=== PATIENT | male | born 1930 | race Caucasian/White ===

== ENCOUNTER 2018-01-31 07:37 | Emergency (ER) | payer OTHER ==
[~2018-01-31] VITALS: Ht 180.3 cm; Wt 90.1 kg
[~2018-01-31 07:37] MED LIST: ALT10 PO; ANTIOXIDANT; ASPCH81 PO; CYAN100T PO; EZET10TA44 PO; METO50TA8 PO; MRLP17 PO; MULT-506 PO; OMEP40CA PO; OXYC-57 PO; RNXER500 PO
[2018-01-31 07:39] VITALS: TEMP 37.5; Ht 180.3 cm; Wt 90.1 kg
[2018-01-31 07:48] VITALS: O2SAT 96
[2018-01-31] MEDS ORDERED: METHYLPREDNISOLONE 125 MG VIAL IV STA (07:52)
[2018-01-31] MEDS ORDERED: ALBUT/IPRATROP 3MG/0.5MG NEB 3 ML VIAL INH STA (07:52)
--- NOTE | 2018-01-31 08:00 | EMERGENCY ROOM VISIT NOTE ---
History Report prepared by Gilberto: Quirino Randolph Under the Supervision of: Dr. Junie Whalen M.D. First contact with patient: 07:42 Chief Complaint: SHORTNESS OF BREATH Stated Complaint: COUGH ALL NIGHT, PAIN IN CHEST History of Present Illness The patient is an 87 year old male who presents to the Emergency Room with complaints of a persistent cough that began last night. The patient states that he flew home from [place] two days ago, and there was a man coughing on the plane. The patient also notes some left sided chest pain, and feels chilled. Patient admits to some sputum production. He denies being short of breath with walking. Patient denies history of fever, vomiting, diarrhea or lower extremity swelling. He has a history of triple bypass surgery. He denies a history of blood clots. Source of History: patient, spouse/significant other Onset: Last night Position: chest Quality: other (cough) Timing: other (persistent) Associated Symptoms: + chills, + chest pain Review of Systems See HPI for pertinent positives & negatives. A total of 10 systems reviewed and were otherwise negative. Past Medical & Surgical Hx of Cardiac Bypass Surgery. Family History Omitted secondary to age. Social History Smoking Status: Former Smoker Marital Status: Housing Status: lives with significant other Occupation Status: retired Current/Historical Medications Scheduled Ascorbic Acid (Vitamin C), 500 MG PO DAILY Aspirin (Ecotrin Low Strength), 81 MG PO DAILY Atorvastatin (Lipitor), 40 MG PO DAILY Azithromycin (Zithromax Z-Apolinar), 1 PKT PO UD Cyanocobalamin (Vitamin B-12), 500 MCG PO DAILY Metoprolol Succ (Toprol Xl) (Toprol-Xl), 25 MG PO DAILY Omeprazole (Prilosec), 20 MG PO DAILY Ramipril (Ramipril), 2.5 MG PO DAILY Ranolazine (Ranexa), 500 MG PO DAILY Scheduled PRN Albuterol Hfa (Ventolin Hfa), 2 PUFFS INH Q6H PRN for Shortness of Breath Hydrocodone W/ Homatropine (Hycodan 5/1.5MG 5 Ml), 5 ML PO HS PRN for Cough Allergies Coded Allergies: No Known Allergies (Verified , 06/14/06) Physical Exam Vital Signs Date Time Temp Pulse Resp B/P (MAP) Pulse Ox O2 Delivery O2 Flow Rate FiO2 4/17/18 11:35 99 18 117/64 95 Room Air 01/31/18 10:44 103 18 124/69 96 Room Air 01/31/18 09:11 109 20 173/81 96 Room Air 01/31/18 08:42 107 22 159/73 96 Room Air 01/31/18 07:56 99 01/31/18 07:48 96 Room Air 01/31/18 07:39 37.5 101 18 132/88 95 Room Air Physical Exam Vital signs reviewed. General: Well-appearing elderly male, in no significant distress. HEENT: No scleral icterus, PERRLA, neck supple. Atraumatic. Chest: Non-tender to the left anterior chest wall, no pain with deep inspiration. Cardiovascular: Slightly tachycardic rate and regular rhythm, no extra sounds. Pulmonary: Clear to auscultation bilaterally, normal work of breathing. Dry cough. Abdomen: Soft, nontender, nondistended, positive bowel sounds. Musculoskeletal: Atraumatic, no peripheral edema. Neurologic: Patient awake alert and oriented x 3, full strength in all 4 extremities. Cranial nerves 2 through 12 grossly intact. Skin: Warm, dry, no rash Medical Decision & Procedures ER Provider Diagnostic Interpretation: Radiology results as stated below per my review and radiologist interpretation: (CHEST FOR PE) ANGIO WITH CLINICAL HISTORY: 87 years-old Male presenting with ^chest pain, elevated ddimer. TECHNIQUE: Multidetector CT angiography of the chest was performed after administration of intravenous contrast. 3-D volumetric and/or maximum intensity projection (MIP) images were subsequently reconstructed for review. IV contrast: 94 mL of Optiray 320. A dose lowering technique was used consistent with the principles of ALARA (as low as reasonably achievable). COMPARISON: Chest x-ray performed earlier the same day. CT DOSE (mGy.cm): The estimated cumulative dose is 539.09 mGycm. FINDINGS: Construction Producer topogram: Median sternotomy wires and mediastinal surgical clips noted. Pulmonary vasculature: The study is suboptimal for the assessment of the pulmonary vascular tree secondary to positioning of the arms at the sides, timing of the contrast bolus, and respiratory motion artifact. Allowing for limited image quality, no central filling defect to suggest pulmonary embolus. Main pulmonary artery is not enlarged. No flattening of the interventricular septum. No intracardiac filling defect. No reflux of contrast into the hepatic veins. Remaining chest: On soft tissue windows, subcentimeter nodule in the right lobe of the thyroid. Bilateral gynecomastia. Few subcentimeter mediastinal lymph nodes, mobile most prominently in the subcarinal region measuring up to 9 mm in the short axis, possibly reactive. Atherosclerosis of the aorta. Normal heart size. Coronary artery calcification. Post surgical changes of coronary artery bypass grafting. Graft vessels appear patent. No pericardial or pleural effusion. Cholelithiasis. On lung windows, motion artifact grades evaluation of lung parenchyma. Allowing for this, dependent consolidation likely atelectasis. Mild bronchial wall thickening suggested. Central airways patent. On bone windows, degenerative changes of the spine. Exaggerated thoracic kyphosis. No focal compression deformity. Well-healed sternotomy. IMPRESSION: 1. Allowing for suboptimal image quality, no evidence of pulmonary embolus. 2. Bibasilar atelectasis. 3. Nonspecific mild bronchial wall thickening. This could suggest bronchitis, mild congestive change, or smoking related lung injury. 4. Reactive mediastinal lymph nodes. 5. Postsurgical changes of CABG. Electronically signed by: Mahendra Hennessy M.D. 01/31/2018 9:15 AM Dictated Date/Time: 01/31/2018 9:08 AM CHEST ONE VIEW PORTABLE CLINICAL HISTORY: 87 years-old Male presenting with cough. TECHNIQUE: Portable upright AP view of the chest was obtained. COMPARISON: 03/02/2010. FINDINGS: Median sternotomy wires and mediastinal surgical clips noted. Atherosclerosis of the aortic arch. Cardiac silhouette normal in size. Elevation of the left hemidiaphragm with minimal left basilar opacity. Otherwise no focal opacity. No large effusion or pneumothorax. Degenerative changes of the thoracic spine. IMPRESSION: 1. Elevation of the left hemidiaphragm with minimal left basilar atelectasis. No convincing evidence of acute cardiopulmonary disease. Electronically signed by: Mahendra Hennessy M.D. 01/31/2018 8:19 AM Dictated Date/Time: 01/31/2018 8:18 AM Laboratory Results 01/31/18 08:06 Red Blood Count 4.72, Mean Corpuscular Volume 89.8, Mean Corpuscular Hemoglobin 31.8, Mean Corpuscular Hemoglobin Concent 35.4, Mean Platelet Volume 9.6, Neutrophils (%) (Auto) 90.7, Lymphocytes (%) (Auto) 3.4, Monocytes (%) (Auto) 4.1, Eosinophils (%) (Auto) 1.2, Basophils (%) (Auto) 0.2, Neutrophils # (Auto) 9.53, Lymphocytes # (Auto) 0.36, Monocytes # (Auto) 0.43, Eosinophils # (Auto) 0.13, Basophils # (Auto) 0.02 01/31/18 08:06 Test 01/31/18 08:06 01/31/18 08:12 01/31/18 10:17 White Blood Count 10.51 K/uL (4.8-10.8) Red Blood Count 4.72 M/uL (4.7-6.1) Hemoglobin 15.0 g/dL (14.0-18.0) Hematocrit 42.4 % (42-52) Mean Corpuscular Volume 89.8 fL (80-100) Mean Corpuscular Hemoglobin 31.8 pg (25-34) Mean Corpuscular Hemoglobin Concent 35.4 g/dl (32-36) Platelet Count 98 K/uL (130-400) Mean Platelet Volume 9.6 fL (7.4-10.4) Neutrophils (%) (Auto) 90.7 % Lymphocytes (%) (Auto) 3.4 % Monocytes (%) (Auto) 4.1 % Eosinophils (%) (Auto) 1.2 % Basophils (%) (Auto) 0.2 % Neutrophils # (Auto) 9.53 K/uL (1.4-6.5) Lymphocytes # (Auto) 0.36 K/uL (1.2-3.4) Monocytes # (Auto) 0.43 K/uL (0.11-0.59) Eosinophils # (Auto) 0.13 K/uL (0-0.5) Basophils # (Auto) 0.02 K/uL (0-0.2) RDW Standard Deviation 44.0 fL (36.4-46.3) RDW Coefficient of Variation 13.4 % (11.5-14.5) Immature Granulocyte % (Auto) 0.4 % Immature Granulocyte # (Auto) 0.04 K/uL (0.00-0.02) Platelet Estimate DECREASED Large Platelets 1+ Anion Gap 7.0 mmol/L (3-11) Est Creatinine Clear Calc Drug Dose 43.4 ml/min Estimated GFR () 57.3 Estimated GFR (Non- 49.4 BUN/Creatinine Ratio 13.9 (10-20) Calcium Level 8.8 mg/dl (8.5-10.1) Total Bilirubin 1.3 mg/dl (0.2-1) Direct Bilirubin 0.3 mg/dl (0-0.2) Aspartate Amino Transf (AST/SGOT) 18 U/L (15-37) Alanine Aminotransferase (ALT/SGPT) 30 U/L (12-78) Alkaline Phosphatase 78 U/L (45-117) Total Protein 7.2 gm/dl (6.4-8.2) Albumin 4.2 gm/dl (3.4-5.0) Bedside D-Dimer > 450 ng/mlFEU (0-450) Troponin I < 0.015 ng/ml (0-0.045) Laboratory results per my review. Medications Administered Medications (Trade) Dose Ordered Sig/Saleem Route Start Time Stop Time Status Last Admin Dose Admin Albuterol/ Ipratropium (Duoneb) 3 ml NOW STAT INH 01/31/18 07:52 01/31/18 07:55 DC 01/31/18 08:20 3 ML Methylprednisolone Sodium Succinate (Solu-Medrol IV) 125 mg NOW STAT IV 01/31/18 07:52 01/31/18 07:55 DC 01/31/18 08:20 125 MG Morphine Sulfate (MoRPHine SULFATE INJ) 2 mg NOW STAT IV 01/31/18 09:18 01/31/18 09:19 DC 01/31/18 09:38 2 MG Ondansetron HCl (Zofran Inj) 4 mg NOW STAT IV 01/31/18 09:18 01/31/18 09:20 DC 01/31/18 09:36 4 MG Acetaminophen (Tylenol Tab) 650 mg NOW STAT PO 01/31/18 09:29 01/31/18 09:31 DC 01/31/18 09:37 650 MG ECG Per My Interpretation Indication: chest pain Rate (beats per minute): 97 Rhythm: normal sinus Findings: other (No LIVAN/STD, possible inferior infarct) Change: REPEAT EKG SHOWS: Sinus tachycardia 110, non specific ST-changes. Poor baseline for interpretation. ED Course 0747: Past medical records reviewed. The patient was evaluated in room A12B. A complete history and physical examination was performed. 0752: Ordered Solu-Medrol 125 mg IV, Duoneb 3 mL INH. 09: Ordered Zofran 4 mg IV, Morphine Sulfate 2 mg IV. 928: Ordered Tylenol 650 mg PO. 1147: Upon reevaluation, the patient appeared to have improvement of his symptoms. I discussed findings with him. He verbalized agreement of the treatment plan. The patient was discharged home. Medical Decision Differential diagnosis: Etiologies such as infections, reactive airway disease, pneumonia, pneumothorax , COPD, CHF, cardiac ischemia, pulmonary embolism, musculoskeletal, gastrointestinal, as well as others were entertained. This patient was evaluated and appeared to be in no significant distress. Physical examination is fairly unrevealing. He is noted to be mildly febrile at 37.5. Patient is also slightly tachycardic however has not taken any of his medications including metoprolol. Patient was given a nebulizer treatment which likely contributed to the mild tachycardia. Chest x-ray was obtained and is clear. EKG reveals no evidence of acute ischemic changes. Patient was given IV Solu-Medrol for the bronchitis. He complained of pain and was given IV morphine, p.o. Tylenol and Zofran. Patient's cardiac enzymes are negative 2. D-dimer is positive. CTA of the chest reveals no evidence of PE. EKG reveals no evidence of acute ischemic changes. On reevaluation the patient is feeling much improved. I do suspect a large component of anxiety. Patient was placed on a azithromycin and an albuterol inhaler. He was given a short prescription for Hycodan syrup to be taken at night for cough/sleep. Patient was discharged to follow-up with his PCP this week and to return to the ER for worsening symptoms or any medical concerns. Medication Reconcilliation Current Medication List: was personally reviewed by me Blood Pressure Screening Patient's blood pressure: Elevated blood pressure Blood pressure disposition: Elevated BP felt to be situational Impression Primary Impression: Acute bronchitis Additional Impression: Pleuritic chest pain Scribe Attestation The scribe's documentation has been prepared under my direction and personally reviewed by me in its entirety. I confirm that the note above accurately reflects all work, treatment, procedures, and medical decision making performed by me. Departure Information Dispostion Home / Self-Care Prescriptions Azithromycin (ZITHROMAX Z-APOLINAR) 250 Mg Tab 1 PKT PO UD for 5 Days, #6 TAB Prov: Junie Whalen M.D. 01/31/18 Albuterol Hfa (VENTOLIN HFA) 200 Puffs/59486 Mcg Aers 2 PUFFS INH Q6H Y for Shortness of Breath, #1 INHALER Prov: Junie Whalen M.D. 01/31/18 Hydrocodone W/ Homatropine (HYCODAN 5/1.5MG 5 ML) 1 Syp Syp 5 ML PO HS Y for Cough for 10 Days, #100 ML Prov: Junie Whalen M.D. 01/31/18 Referrals Bogdan Miles III, M.D. (PCP) Forms HOME CARE DOCUMENTATION FORM, IMPORTANT VISIT INFORMATION Patient Instructions My [facility] Additional Instructions Diagnosis: Bronchitis Azithromycin 500 mg today, 250 mg daily for next 4 days. Hycodan 1 tsp or 5 mL at night for cough, do not drive after taking this medication. Albuterol 2 puffs every 4 hours as needed for cough Tylenol 650 mg every 6 hours as needed for pain. Continue your medications as prescribed. Return to the ED for worsening of symptoms or any medical concerns. Problem Qualifiers
--- NOTE | 2018-01-31 08:20 | DIAGNOSTIC IMAGING REPORT ---
CHEST ONE VIEW PORTABLE CLINICAL HISTORY: 87 years-old Male presenting with cough. TECHNIQUE: Portable upright AP view of the chest was obtained. COMPARISON: 03/02/2010. FINDINGS: Median sternotomy wires and mediastinal surgical clips noted. Atherosclerosis of the aortic arch. Cardiac silhouette normal in size. Elevation of the left hemidiaphragm with minimal left basilar opacity. Otherwise no focal opacity. No large effusion or pneumothorax. Degenerative changes of the thoracic spine. IMPRESSION: 1. Elevation of the left hemidiaphragm with minimal left basilar atelectasis. No convincing evidence of acute cardiopulmonary disease. Electronically signed by: Mahendra Hennessy M.D. 01/31/2018 8:19 AM Dictated Date/Time: 01/31/2018 8:18 AM
[2018-01-31 08:33] LABS: ALBUMIN 4.2 gm/dl (3.4-5.0); CALCIUM 8.8 mg/dl (8.5-10.1); CREATININE 1.3 mg/dl (0.60-1.40); POTASSIUM 4.2 mmol/L (3.5-5.1); TOTAL PROTEIN 7.2 gm/dl (6.4-8.2)
[2018-01-31 08:36] LABS: BASO % 0.2 %; BASO ABS # 0.02 K/uL (0-0.2); EOS % 1.2 %; EOS ABS # 0.13 K/uL (0-0.5); HEMATOCRIT 42.4 % (42-52); IG# 0.04 K/uL (0.00-0.02); LYMPH % 3.4 %; LYMPH ABS # 0.36 K/uL (1.2-3.4); MEAN CELL VOLUME 89.8 fL (80-100); MEAN CORPUSCULAR HEMOGLOBIN 31.8 pg (25-34); MEAN CORPUSCULAR HGB CONC 35.4 g/dl (32-36); MEAN PLATELET VOLUME 9.6 fL (7.4-10.4); MONO % 4.1 %; MONO ABS # 0.43 K/uL (0.11-0.59); NEUT % 90.7 %; NEUT ABS # 9.53 K/uL (1.4-6.5); PLATELET COUNT 98 K/uL (130-400); RED CELL DISTRIBUTION WIDTH CV 13.4 % (11.5-14.5); WHITE BLOOD COUNT 10.51 K/uL (4.8-10.8)
[2018-01-31] MEDS ORDERED: OPTIRAY 320 IV PRN (08:45)
[2018-01-31] MEDS ORDERED: RAMI2.5C PO (08:46)
[2018-01-31] MEDS ORDERED: METO25TA3 PO (08:46)
[2018-01-31] MEDS ORDERED: ATOR-24 PO (08:46)
[2018-01-31] MEDS ORDERED: ASCA500 PO (08:46)
[2018-01-31] MEDS ORDERED: PRLSR20 PO (08:46)
[2018-01-31] MEDS ORDERED: RANO500T PO (08:46)
[2018-01-31] MEDS ORDERED: CYAN500T PO (08:46)
[2018-01-31] MEDS ORDERED: ASPI-428 PO (08:46)
--- NOTE | 2018-01-31 09:17 | DIAGNOSTIC IMAGING REPORT ---
(CHEST FOR PE) ANGIO WITH CLINICAL HISTORY: 87 years-old Male presenting with ^chest pain, elevated ddimer. TECHNIQUE: Multidetector CT angiography of the chest was performed after administration of intravenous contrast. 3-D volumetric and/or maximum intensity projection (MIP) images were subsequently reconstructed for review. IV contrast: 94 mL of Optiray 320. A dose lowering technique was used consistent with the principles of ALARA (as low as reasonably achievable). COMPARISON: Chest x-ray performed earlier the same day. CT DOSE (mGy.cm): The estimated cumulative dose is 539.09 mGycm. FINDINGS: Sneller Hand topogram: Median sternotomy wires and mediastinal surgical clips noted. Pulmonary vasculature: The study is suboptimal for the assessment of the pulmonary vascular tree secondary to positioning of the arms at the sides, timing of the contrast bolus, and respiratory motion artifact. Allowing for limited image quality, no central filling defect to suggest pulmonary embolus. Main pulmonary artery is not enlarged. No flattening of the interventricular septum. No intracardiac filling defect. No reflux of contrast into the hepatic veins. Remaining chest: On soft tissue windows, subcentimeter nodule in the right lobe of the thyroid. Bilateral gynecomastia. Few subcentimeter mediastinal lymph nodes, mobile most prominently in the subcarinal region measuring up to 9 mm in the short axis, possibly reactive. Atherosclerosis of the aorta. Normal heart size. Coronary artery calcification. Post surgical changes of coronary artery bypass grafting. Graft vessels appear patent. No pericardial or pleural effusion. Cholelithiasis. On lung windows, motion artifact grades evaluation of lung parenchyma. Allowing for this, dependent consolidation likely atelectasis. Mild bronchial wall thickening suggested. Central airways patent. On bone windows, degenerative changes of the spine. Exaggerated thoracic kyphosis. No focal compression deformity. Well-healed sternotomy. IMPRESSION: 1. Allowing for suboptimal image quality, no evidence of pulmonary embolus. 2. Bibasilar atelectasis. 3. Nonspecific mild bronchial wall thickening. This could suggest bronchitis, mild congestive change, or smoking related lung injury. 4. Reactive mediastinal lymph nodes. 5. Postsurgical changes of CABG. Electronically signed by: Mahendra Hennessy M.D. 01/31/2018 9:15 AM Dictated Date/Time: 01/31/2018 9:08 AM
[2018-01-31] MEDS ORDERED: MoRPHine SULFATE 2 MG/ML CARP IV STA (09:18)
[2018-01-31] MEDS ORDERED: ONDANSETRON INJ 2 MG/ML 2 ML VIAL IV STA (09:18)
[2018-01-31] MEDS ORDERED: ACETAMINOPHEN 325 MG TAB PO STA (09:29)
[2018-01-31 11:35] VITALS: BP 117/64; PULSE 99; O2SAT 95
[2018-01-31] MEDS ORDERED: VNTHFA/IN INH (11:42)
[2018-01-31] MEDS ORDERED: AZITTAB PO (11:42)
[2018-01-31] MEDS ORDERED: HYDR5SYP11 PO (11:42)
== END 2018-01-31 11:50 | disposition home or self-care (01) ==
LOC: C.EDB 07:37 → C.EDA 11:50
DX: J20.9 Acute bronchitis, unspecified (principal); R07.1 Chest pain on breathing; Z95.1 Presence of aortocoronary bypass graft; Z87.891 Personal history of nicotine dependence; Z79.82 Long term (current) use of aspirin; Z79.899 Other long term (current) drug therapy